=== PATIENT | female | born 1950 | race Caucasian/White ===

== ENCOUNTER → 2019-03-21 | Outpatient (CLI) | payer MEDICARE ==
--- NOTE | 2019-03-21 10:59 | Diagnostic Imaging Report ---
INDICATION: Preop hip surgery. PA and lateral chest. FINDINGS: Heart size and pulmonary vascularity are normal. Lungs are clear. There are no effusions or pneumothoraces. IMPRESSION: Negative chest. Dictated by: Dictated on workstation # [id number]
== END ==
LOC: RAD FS 10:47
PROVIDERS: ATTEND Family Medicine
DX: Z01.818 Encounter for other preprocedural examination (principal)
CPT/HCPCS: 71046

== ENCOUNTER → 2021-07-16 | Outpatient (CLI) | payer MEDICARE ==
--- NOTE | 2021-07-16 13:20 | Diagnostic Imaging Report ---
INDICATION: Asymptomatic postmenopausal female. COMPARISON: DEXA 02/24/2002 FINDINGS: AP Spine L1-L4: [BMD (g/cm2): 1.063] [T-Score: -1.1] [Z-Score: 0.5] [BMD Previous: 1.136] [BMD % Change: -6.4] RT Hip Neck: [BMD (g/cm2):0.785] [T-Score:-1.8] [Z-Score:0.0] RT Hip Total: [BMD (g/cm2):0.868] [T-score:-1.1] [Z-Score:0.5] [BMD Previous:0.970] [BMD % Change:-10.5] *Indicates significant change from prior examination based on 95% confidence level. World Health Organization criteria for BMD interpretation classify patients as Normal (T-score at or above -1.0), Osteopenic (T-score between -1.0 and -2.5) or Osteoporotic (T-score at or below -2.5). LIMITATIONS AND MODIFICATION: Left hip was not imaged secondary to hip replacement. FRACTURE RISK (FRAX SCORE): The ten year probability of (%): Major Osteoporotic Fracture: [18.1] Hip Fracture: [3.7] IMPRESSION: 1. Osteopenia (Low bone mass). 2. Bone mineral density has decreased by a statistically significant amount, as detailed above. 3. See below National Osteoporosis Foundation guidelines on when to potentially initiate pharmacologic therapy. Based on the National Osteoporosis Foundation Guidelines, pharmacologic treatment should be initiated in any of the following, unless clinical conditions suggest otherwise: * Any patient with prior fragility fracture of the hip or vertebrae. A spine fracture indicates 5X risk for subsequent spine fracture and 2X risk for subsequent hip fracture. * Osteoporosis (T-score <-2.5). * Postmenopausal women and men age 50 and older with low bone mass/osteopenia (T-score between -1.0 and -2.5) by DXA and 10-year major osteoporotic fracture greater than 20% or a 10-year probability of hip fracture greater than 3%. These fracture risks are supplied above in the FRAX score, if applicable. * Clinician judgement and/or patient preferences may indicate treatment for people with 10-year fracture probabilities above or below these levels. Dictated by: Dictated on workstation # [id number]
== END ==
LOC: RAD 12:12
PROVIDERS: ATTEND Internal Medicine Hematology & Oncology
DX: M85.80 Other specified disorders of bone density and structure, unspecified site (principal); C50.912 Malignant neoplasm of unspecified site of left female breast; Z78.0 Asymptomatic menopausal state
CPT/HCPCS: 77080; G0463; 99213

== ENCOUNTER 2021-08-12 11:06 | Outpatient (RCR) | payer MEDICARE ==
[2021-08-12 11:16] LABS: BASOPHILS # (AUTO) 0.1 10^3/uL (0.0-0.1); BASOPHILS % (AUTO) 1 % (0-10); EOSINOPHILS # (AUTO) 0.2 10^3/uL (0.0-0.3); EOSINOPHILS % (AUTO) 3 % (0-10); HEMATOCRIT 46 % (35-52); HEMOGLOBIN 14.7 g/dL (11.5-16.0); LYMPHOCYTES # (AUTO) 1.6 10^3/uL (1.0-4.0); LYMPHOCYTES % (AUTO) 20 % (12-44); MEAN CORPUSCULAR HEMOGLOBIN 31 pg (25-34); MEAN CORPUSCULAR HGB CONC 32 g/dL (32-36); MEAN CORPUSCULAR VOLUME 96 fL (80-99); MEAN PLATELET VOLUME 9.1 fL (9.0-12.2); MONOCYTES # (AUTO) 0.8 10^3/uL (0.0-1.0); MONOCYTES % (AUTO) 10 % (0-12); NEUTROPHILS # (AUTO) 5.5 10^3/uL (1.8-7.8); NEUTROPHILS % (AUTO) 67 % (42-75); PLATELET COUNT 409 10^3/uL (130-400); WHITE BLOOD COUNT 8.3 10^3/uL (4.3-11.0)
[2021-08-12 11:35] LABS: ALBUMIN 3.9 GM/DL (3.2-4.5); BILIRUBIN,TOTAL 0.3 MG/DL (0.1-1.0); CALCIUM 9.6 MG/DL (8.5-10.1); CREATININE SERUM 0.98 MG/DL (0.60-1.30); POTASSIUM 4.7 MMOL/L (3.6-5.0); TOTAL PROTEIN 6.4 GM/DL (6.4-8.2)
== END 2021-09-29 | disposition home or self-care (01) ==
LOC: ONC 11:06
PROVIDERS: ATTEND Internal Medicine Hematology & Oncology
DX: C50.512 Malignant neoplasm of lower-outer quadrant of left female breast (principal); M85.80 Other specified disorders of bone density and structure, unspecified site; I10 Essential (primary) hypertension; E78.00 Pure hypercholesterolemia, unspecified; R91.1 Solitary pulmonary nodule; Z78.0 Asymptomatic menopausal state; Z90.13 Acquired absence of bilateral breasts and nipples; Z72.0 Tobacco use
CPT/HCPCS: 80053; 82306; 85025; 99204; 99213; 99214

== ENCOUNTER → 2021-10-18 | Outpatient (CLI) | payer MEDICARE ==
[~2021-10-18] MED LIST: ACHD5005 PO; CATHETER FLUSH 10 ML SYR IV PRN; HOLD METFORMIN - RECEIVED CONTRAST 20 ML VIAL IV SCH; IBUP-1773 PO; IOHEXOL 350 MG/ML 100 ML (OMNIPAQUE 350) VIAL IV ONE; NS 100 ML (IVPB) BAG IV ONE
[2021-10-18 13:27] LABS: CALCIUM 9.1 MG/DL (8.5-10.1); POTASSIUM 4.2 MMOL/L (3.6-5.0)
[2021-10-18 13:32] LABS: CREATININE SERUM 0.86 MG/DL (0.60-1.30)
--- NOTE | 2021-10-18 15:34 | Diagnostic Imaging Report ---
CT CHEST W TECHNIQUE: Multiple contiguous axial images were obtained through the chest with the use of intravenous contrast. All CT scans use one or more of the following dose optimizing techniques: automated exposure control, MA and/or KvP adjustment based on a patient size and exam type, or iterative reconstruction. INDICATION: Pulmonary nodule COMPARISON: None available FINDINGS: Lungs and airway: No lesion within the trachea. No pneumonia or edema. No bronchiectasis or honeycombing. No suspicious pulmonary nodule. Pleura: No pleural effusion or pneumothorax. Heart and mediastinum: Heterogeneous enhancing 1.8 x 1.5 cm right thyroid nodule. No supraclavicular or axillary lymphadenopathy. No mediastinal or hilar lymphadenopathy. Heart is normal in size without pericardial effusion. Normal caliber thoracic aorta. Upper abdomen: Gastric sleeve has been performed. No acute or concerning abnormality upper abdomen. Musculoskeletal: No worrisome focal osseous lesions. IMPRESSION: 1. No pulmonary nodules or lymphadenopathy that would suggest intrathoracic neoplasm. 2. No acute process within the chest. Dictated by: Dictated on workstation # [id number]
== END ==
LOC: RAD FS 12:47
PROVIDERS: ATTEND Nurse Practitioner Adult Health
DX: C50.519 Malignant neoplasm of lower-outer quadrant of unspecified female breast (principal); R91.1 Solitary pulmonary nodule
CPT/HCPCS: 36415; 71260; 80048

== ENCOUNTER 2021-10-21 11:15 | Emergency (ER) | payer MEDICARE ==
[~2021-10-21] VITALS: Ht 162.6 cm; Wt 63.5 kg
[2021-10-21 11:25] VITALS: BP 159/94
--- NOTE | 2021-10-21 11:36 | ED Upper Extremity ---
General Chief Complaint: Upper Extremity Stated Complaint: RT WRIST INJ Source: patient History of Present Illness Date Seen by Provider: Oct 21, 2021 Time Seen by Provider: 11:23 Initial Comments 71-year-old female presenting with complaints of pain in her right wrist and elbow. She states there is a stump on her porch that she has tripped over repeatedly. She tripped over this last night and fell. She did not hit her head or lose consciousness. She had her hand out to help catch herself and break her fall. She has had pain in her right wrist and elbow since the fall. She had a fall few weeks ago and was having some shoulder and elbow pain after that. She continued to have severe pain this morning despite icing the wrist overnight. She denies any numbness or tingling in her fingers. The pain is increased with movements or palpation of her wrist. She has taken Tylenol last night and again this morning with minimal improvement in her pain. She was concerned that there may be a fracture or break because it was hurting so bad. Location Injury Occurred: Front porch of her house Onset: yesterday Severity: severe Pain/Injury Location: right elbow, right wrist Method of Injury: fell Modifying Factors: Worse With Movement Allergies and Home Medications Allergies Coded Allergies: No Allergy Information Available (Unverified , 10/18/21) Patient Home Medication List Home Medication List Reviewed: Yes Hydrocodone/Acetaminophen (Hydrocodone-Acetamin 5-325 mg) 1 Each Tablet, 1 TAB PO Q6H PRN for PAIN-SEVERE (8-10) Prescribed by: EARL GAN on 10/21/21 1225 Ibuprofen (Ibuprofen) 600 Mg Tablet, 600 MG PO Q8H PRN for PAIN-MILD Prescribed by: EARL GAN on 10/21/21 1224 Review of Systems Constitutional: no symptoms reported EENTM: no symptoms reported Respiratory: no symptoms reported Cardiovascular: no symptoms reported Gastrointestinal: no symptoms reported Genitourinary: no symptoms reported Musculoskeletal: see HPI, joint pain (Right wrist and elbow) Skin: change in color (Some mild bruising to the right wrist) Psychiatric/Neurological: Denies Numbness, Denies Paresthesia Past Detjwkb-Raktnn-Unxtgs Hx Patient Social History Tobacco Use?: No Smoking Status: Never a Smoker Smokeless Tobacco Frequency: Never a User Use of E-Cig and/or Vaping Jarek: Never a User Substance use?: No Alcohol Use?: No Pt feels they are or have been: No Immunizations Up To Date First/Initial COVID19 Vaccinat: 01/2021 Second COVID19 Vaccination Edgar: 02/2021 COVID19 Vaccine [employer]: HERMELINDA Physical Exam Vital Signs Vital Signs - First Documented 10/21/21 11:25 Temp 36.2 Pulse 92 Resp 18 B/P (MAP) 159/94 (115) O2 Delivery Room Air Capillary Refill : Height, Weight, BMI Height: '" Weight: lbs. oz. kg; BMI Method: General Appearance: WD/WN, no apparent distress HEENT: PERRL/EOMI Cardiovascular: normal peripheral pulses Shoulder: normal inspection, non-tender, no evidence of injury, normal ROM Elbow/Forearm: normal ROM, pain (Tenderness on the right elbow especially to the medial aspect with palpation) Wrist: Yes bone tenderness (Pain with palpation over the right wrist and with movement at the wrist), Yes ecchymosis (Mild bruising to the right wrist), Yes limited ROM (Limited range of motion of the right wrist due to pain), Yes pain (Right wrist pain with palpation or movement) Hand: non-tender, no evidence of injury, normal ROM Neurologic/Tendon: normal sensation, normal motor functions, normal tendon functions Neurologic/Psychiatric: senior oracle dba II-XII nml as tested, no motor/sensory deficits, alert, normal mood/affect, oriented x 3 Skin: warm/dry, ecchymosis (Faint bruise to the right wrist) Procedures/Interventions Splinting and Joint Reduction : Location: Right wrist and forearm to the elbow Pre-Proc Neuro Vasc Exam: normal Post-Proc Neuro Vasc Exam: normal Progress After obtaining verbal consent from the patient a sugar tong splint was applied to the right forearm to help stabilize the elbow and the wrist. Patient was neurovascularly and tendon intact both pre and post splinting. She was then placed in a sling for support. She had no immediate complication from the procedure. Counseled on follow-up and return precautions as well as management of the sling and splint Progress/Results/Core Measures Results/Orders My Orders Orders - EARL GAN MD Wrist 3 View Right (10/21/21 11:34) Elbow 3 View Right (10/21/21 11:34) Elevate Affected Extremity (10/21/21 11:34) Ed Ortho/Other Supplies Order (10/21/21 12:27) Ortho Glass (10/21/21 12:27) Orthopedic Equiment (10/21/21 12:27) Vital Signs/I&O 10/21/21 11:25 Temp 36.2 Pulse 92 Resp 18 B/P (MAP) 159/94 (115) O2 Delivery Room Air Progress Progress Note #1: Progress Note Since she took Tylenol prior to coming into the emergency department this morning we will defer pain medication for now. Ordered x-rays of her right wrist and right elbow. Progress Note #2: Progress Note X-rays demonstrate acute fracture of the medial epicondyle of the right elbow and distal right radius fracture. Placed in sugartong splint and sling. Patient was neurovascularly and tendon intact both pre and post splinting. Counseled on follow-up and return precautions. Departure Impression Primary Impression: Traumatic closed nondisplaced fracture of distal end of right radius Qualified Codes: S52.501A - Unspecified fracture of the lower end of right radius, initial encounter for closed fracture Additional Impression: Nondisplaced fracture (avulsion) of medial epicondyle of right humerus, initial encounter for closed fracture Disposition: 01 HOME, SELF-CARE Condition: Stable Departure-Patient Inst. Decision time for Depature: 12:16 Referrals: PRABHJOT MORA MD (PCP/Family) Primary Care Physician SINGH DELATORRE MICHAEL P MD Patient Instructions: Elbow Fracture, Adult ED, Forearm and Wrist Fractures ED, How to Use a Shoulder Sling ED, Splint Care ED Add. Discharge Instructions: Keep splint clean and dry. Keep the splint in place at all times to help stabilize your fracture of the wrist and your elbow. Call today to arrange follow up with Orthopedics early next week to be seen about the fractures as you will likely need to be placed in a cast to stabilize the fractures until they heal in 4-[address] Jacobson out of [employer] is at [phone] and his Nurse Practitioner that works at the [facility] here in [place], is at [phone]. Keep your splint elevated as much as possible to help with swelling and pain. Use the sling for support of your wrist and elbow. May still apply ice 20-30 minutes every few hours as needed for pain and swelling. Check back with clinic for continued problems/concerns. Use Hydrocodone/Acetaminophen for severe pain. Ibuprofen for mild to moderate pain. All discharge instructions reviewed with patient and/or family. Voiced unde rstanding. Scripts Ibuprofen (Ibuprofen) 600 Mg Tablet 600 MG PO Q8H PRN for PAIN-MILD for 10 Days, #30 TAB 0 Refills Prov: EARL GAN MD 10/21/21 Hydrocodone/Acetaminophen (Hydrocodone-Acetamin 5-325 mg) 1 Each Tablet 1 TAB PO Q6H PRN for PAIN-SEVERE (8-10) for 5 Days, #20 TAB 0 Refills Prov: EARL GAN MD 10/21/21 EARL GAN MD Oct 21, 2021 11:36
--- NOTE | 2021-10-21 11:58 | Diagnostic Imaging Report ---
INDICATION: Fall. TIME OF EXAM: 11:38 AM 3 views of the right elbow were obtained. FINDINGS: There is a lucency with cortical interruption involving the medial epicondyle of the distal humerus consistent with a fracture. No displacement is seen. The proximal radius and ulna appear intact. Alignment is normal. IMPRESSION: Findings suggestive of fracture involving the medial epicondyle. Dictated by: Dictated on workstation # [id number]
--- NOTE | 2021-10-21 11:59 | Diagnostic Imaging Report ---
INDICATION: Fall and right wrist pain. TIME OF EXAM: 11:40 AM 3 views right wrist were obtained. FINDINGS: Alignment is normal. There appears to be a fracture of the distal radius, dorsal cortex best seen on lateral view. There is some sclerosis of the distal radius. Chondrocalcinosis of triangular fibrocartilage complex. Carpal bones are intact. There is triscaphe and 1st MC joint degenerative changes. Metacarpals are intact. IMPRESSION: There are findings suggestive of a nondisplaced distal radius fracture. Dictated by: Dictated on workstation # [id number]
--- OUTSIDE RECORDS SUMMARY | 2021-10-21 12:14 | XMS REPORT | Clinical Summary ---
Author Author [facility] Organization [facility] Address Unknown Phone Unavailable Care Team Providers Care Quality Control Lab Tech Name Role Phone PCP Unavailable Allergies Not on File Medications Not on file Active Problems Not on file Social History Date Tobacco Use Types Packs/Day Years Used Never Assessed Sex Assigned at Date Recorded Not on file Last Filed Vital Signs Not on file Plan of Treatment Not on file Results Not on filefrom Last 3 Months Advance Directives For more information, please contact: [phone] Patient Database Tester Explanation Type Date Recorded Health Care Directive
[2021-10-21] MEDS ORDERED: ACHD5005 PO (12:24)
[2021-10-21] MEDS ORDERED: IBUP-1773 PO (12:24)
== END 2021-10-21 12:33 | disposition home or self-care (01) ==
LOC: EDUNIT# 11:15 → ER FS 11:18
DX: S52.501A Unspecified fracture of the lower end of right radius, initial encounter for closed fracture (principal); S42.444A Nondisplaced fracture (avulsion) of medial epicondyle of right humerus, initial encounter for closed fracture; W01.0XXA Fall on same level from slipping, tripping and stumbling without subsequent striking against object, initial encounter
CPT/HCPCS: 29105; 73080; 73110

== ENCOUNTER → 2021-11-05 | Outpatient (CLI) | payer MEDICARE ==
[~2021-11-05] MED LIST changes: -CATHETER FLUSH 10 ML SYR IV PRN; -HOLD METFORMIN - RECEIVED CONTRAST 20 ML VIAL IV SCH; -IOHEXOL 350 MG/ML 100 ML (OMNIPAQUE 350) VIAL IV ONE; -NS 100 ML (IVPB) BAG IV ONE
--- NOTE | 2021-11-05 14:09 | Diagnostic Imaging Report ---
Indication: Wrist fracture follow-up. TIME OF EXAM: 1:43 PM Correlation is made with prior exam from 10/21/2021. Distal radius fracture is again noted with some buckling of the dorsal cortex. There is some sclerosis present consistent with some healing. Alignment is anatomic. The distal ulna is intact. There is chondral calcinosis of the triangle fibrocartilage complex. Carpal bones show triscaphe and 1st MC joint degenerative changes. IMPRESSION: Healing distal radius fracture. Alignment is anatomic. Dictated by: Dictated on workstation # [id number]
--- NOTE | 2021-11-05 14:16 | Diagnostic Imaging Report ---
Indication: Right elbow pain and contusion. TIME OF EXAM: 1:34 PM 4 views of the right elbow were obtained. Alignment is normal. Joint spaces are well-maintained. No fracture, dislocation or effusion is identified. IMPRESSION: No acute abnormalities detected. Dictated by: Dictated on workstation # [id number]
== END ==
LOC: RAD FS 13:12
PROVIDERS: ATTEND Nurse Practitioner
DX: S52.591A Other fractures of lower end of right radius, initial encounter for closed fracture (principal); X58.XXXA Exposure to other specified factors, initial encounter
CPT/HCPCS: 73080; 73100

== ENCOUNTER → 2021-11-26 | Outpatient (CLI) | payer MEDICARE ==
--- NOTE | 2021-11-26 13:40 | Diagnostic Imaging Report ---
Indication: Follow-up right wrist fracture. TIME OF EXAM: 1:24 PM Correlation is made with prior right wrist radiograph from 11/05/2021. Impacted distal radius fracture is again noted and does show some healing. Fracture line does remain partly visible. Alignment is anatomic. The triscaphe and 1st CMC joint degenerative changes are noted. No new fracture seen. IMPRESSION: Healing distal radius fracture. Dictated by: Dictated on workstation # [id number]
== END ==
LOC: RAD FS 13:09
PROVIDERS: ATTEND Nurse Practitioner
DX: S52.591D Other fractures of lower end of right radius, subsequent encounter for closed fracture with routine healing (principal); X58.XXXD Exposure to other specified factors, subsequent encounter
CPT/HCPCS: 73100

== ENCOUNTER 2021-12-09 12:20 | Outpatient (RCR) | payer MEDICARE ==
[2021-12-09 13:26] LABS: BASOPHILS # (AUTO) 0.1 10^3/uL (0.0-0.1); BASOPHILS % (AUTO) 1 % (0-10); EOSINOPHILS # (AUTO) 0.2 10^3/uL (0.0-0.3); EOSINOPHILS % (AUTO) 3 % (0-10); HEMATOCRIT 43 % (35-52); HEMOGLOBIN 14.5 g/dL (11.5-16.0); LYMPHOCYTES % (AUTO) 26 % (12-44); MEAN CORPUSCULAR HEMOGLOBIN 31 pg (25-34); MEAN CORPUSCULAR HGB CONC 34 g/dL (32-36); MEAN CORPUSCULAR VOLUME 94 fL (80-99); MEAN PLATELET VOLUME 9.9 fL (9.0-12.2); MONOCYTES # (AUTO) 0.7 10^3/uL (0.0-1.0); MONOCYTES % (AUTO) 9 % (0-12); NEUTROPHILS # (AUTO) 4.8 10^3/uL (1.8-7.8); NEUTROPHILS % (AUTO) 61 % (42-75); PLATELET COUNT 368 10^3/uL (130-400); WHITE BLOOD COUNT 7.8 10^3/uL (4.3-11.0)
[2021-12-09 13:50] LABS: ALBUMIN 3.9 GM/DL (3.2-4.5); BILIRUBIN,TOTAL 0.4 MG/DL (0.1-1.0); CREATININE SERUM 1.22 MG/DL (0.60-1.30); TOTAL PROTEIN 6.3 GM/DL (6.4-8.2)
== END 2021-12-30 | disposition home or self-care (01) ==
LOC: ONC 12:20
PROVIDERS: ATTEND Internal Medicine Hematology & Oncology
DX: C50.512 Malignant neoplasm of lower-outer quadrant of left female breast (principal); M85.80 Other specified disorders of bone density and structure, unspecified site; I10 Essential (primary) hypertension; E78.00 Pure hypercholesterolemia, unspecified; R91.1 Solitary pulmonary nodule; Z78.0 Asymptomatic menopausal state; Z90.13 Acquired absence of bilateral breasts and nipples; Z72.0 Tobacco use; Z79.810 Long term (current) use of selective estrogen receptor modulators (SERMs); Z92.3 Personal history of irradiation
CPT/HCPCS: 80053; 85025; G0463; 99213

== ENCOUNTER → 2021-12-09 | Outpatient (CLI) | payer MEDICARE ==
--- NOTE | 2021-12-09 14:59 | Diagnostic Imaging Report ---
INDICATION: Left breast carcinoma. Patient is status post left breast lumpectomy. Patient is also status post reduction in the right breast. Correlation is made with prior mammograms 04/02/2021. 2-D and 3-D bilateral diagnostic mammography was performed with CAD. There are postsurgical changes bilateral breasts. Previously noticed spiculated mass left is no longer visualized. No new mass is detected. No malignant-appearing microcalcifications are seen. The axillae are unremarkable. IMPRESSION: Post-therapeutic changes of the left breast and postsurgical changes right breast. No features of malignancy are identified. BI-RADS Category 2 ACR BI-RADS Category 2: Benign findings. Result letter will be mailed to the patient. Note: At least 10% of breast cancer is not imaged by mammography. Dictated by: Dictated on workstation # [id number]
== END ==
LOC: RAD 13:45
PROVIDERS: ATTEND Nurse Practitioner Adult Health
DX: C50.512 Malignant neoplasm of lower-outer quadrant of left female breast (principal); Z90.12 Acquired absence of left breast and nipple
CPT/HCPCS: 77066; G0279; 77062

== ENCOUNTER → 2021-12-24 | Outpatient (CLI) | payer MEDICARE ==
--- NOTE | 2021-12-24 16:37 | Diagnostic Imaging Report ---
PROCEDURE: US Thyroid. TECHNIQUE: Multiple real-time grayscale images were obtained of the thyroid in various projections. INDICATION: Thyroid nodule noted on recent CT chest study from 10/18/2021. FINDINGS: Right lobe of the thyroid measures 5.4 x 1.9 x 1.8 cm, and left lobe measures 4.6 x 1.1 x 1.3 cm. Isthmus is 3 mm in thickness. There are numerous bilateral thyroid nodules. Subcentimeter nodules in the mid left lobe of the thyroid are noted. These appear to be solid, circumscribed, and hypoechoic. There are numerous cystic as well as heterogeneous nodules in the right lobe of the thyroid. Dominant nodule on the right is in the lower pole, which appears to be heterogeneous and slightly hyperechoic. This measures 2.3 x 1.8 x 1.2 cm. IMPRESSION: Bilateral thyroid nodules. Dominant nodule in the lower pole right lobe is noted. Tissue sampling could be performed. This would be amenable to ultrasound-guided fine-needle aspiration and biopsy. Dictated by: Dictated on workstation # [id number]
== END ==
LOC: RAD 13:00
PROVIDERS: ATTEND Internal Medicine Hematology & Oncology
DX: E04.2 Nontoxic multinodular goiter (principal)
CPT/HCPCS: 76536

== ENCOUNTER → 2022-01-29 | Outpatient (CLI) | payer MEDICARE ==
[~2022-01-29] VITALS: Ht 157 cm; Wt 61.0 kg
[~2022-01-29] MED LIST changes: +LIDOCAINE 1% INJ 20 ML VIAL INJ ONE; +LIDOCAINE 1% INJ 50 ML (XYLOCAINE) VIAL ONE
--- NOTE | 2022-01-29 12:40 | Diagnostic Imaging Report ---
INDICATION: Right thyroid nodule. Patient presents for ultrasound-guided fine-needle aspiration and biopsy. Patient brought to the procedure room placed on table in the supine position. Ultrasound imaging of the right neck was prepped and draped in usual sterile fashion. Small amount of 1% lidocaine was utilized for local anesthesia. A total of 4 passes were made into the solid hypoechoic nodule in the lower pole right lobe of thyroid utilizing 25-gauge needles and fine-needle aspiration technique. A single pass made with a Rotex needle and Rotex biopsy was performed. The needles were removed and hemostasis was obtained. Patient tolerated procedure well left performed stable condition. IMPRESSION: Successful ultrasound guided fine needle aspiration and Rotex biopsy of right lobe thyroid nodule. Pathology results are currently pending. Dictated by: Dictated on workstation # [id number]
== END ==
LOC: RAD 10:52
PROVIDERS: ATTEND Nurse Practitioner Adult Health
DX: E04.2 Nontoxic multinodular goiter (principal)
CPT/HCPCS: 10005

== ENCOUNTER → 2022-02-13 | Outpatient (CLI) | payer MEDICARE ==
[~2022-02-13] MED LIST changes: -LIDOCAINE 1% INJ 20 ML VIAL INJ ONE; -LIDOCAINE 1% INJ 50 ML (XYLOCAINE) VIAL ONE
== END ==
LOC: CARDFS 13:09
PROVIDERS: ATTEND Family Medicine
DX: I08.3 Combined rheumatic disorders of mitral, aortic and tricuspid valves (principal)
CPT/HCPCS: 93325

== ENCOUNTER 2022-02-28 19:49 | Emergency (ER) | payer OTHER, MEDICARE ==
[~2022-02-28] VITALS: Ht 154 cm; Wt 61.0 kg
[2022-02-28 20:01] VITALS: BP 158/71
[2022-02-28] MEDS ORDERED: HYDROcodone/APAP 5 MG/325 MG (LORTAB) TAB PO STA (20:02)
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
[2022-02-28] MEDS ORDERED: ACHD5005 PO (21:27)
== END 2022-02-28 21:33 | disposition home or self-care (01) ==
LOC: EDUNIT# 19:49 → ER FS 19:50
DX: S52.501A Unspecified fracture of the lower end of right radius, initial encounter for closed fracture (principal); S52.291A Other fracture of shaft of right ulna, initial encounter for closed fracture; S20.219A Contusion of unspecified front wall of thorax, initial encounter; V89.2XXA Person injured in unspecified motor-vehicle accident, traffic, initial encounter; W22.11XA Striking against or struck by driver side automobile airbag, initial encounter
CPT/HCPCS: 29105; 71046; 73090; 73110